=== PATIENT | female | born 1940 | race Caucasian/White ===

== ENCOUNTER 2021-03-10 03:36 | Emergency (ER) | payer OTHER ==
[~2021-03-10] VITALS: Ht 157.5 cm; Wt 59.0 kg
[2021-03-10] MEDS ORDERED: ASPI81CH PO (04:07)
[2021-03-10] MEDS ORDERED: FLUO10 PO (04:07)
== END 2021-03-10 06:21 | disposition home or self-care (01) ==
LOC: ER 03:36
DX: S01.01XA Laceration without foreign body of scalp, initial encounter (principal); Z79.82 Long term (current) use of aspirin; Z79.899 Other long term (current) drug therapy; W06.XXXA Fall from bed, initial encounter
CPT/HCPCS: 12001; 70450; 72125; 99284-25